=== PATIENT | female | born 1955 | race Caucasian/White ===

== ENCOUNTER → 2017-12-29 | Outpatient (CLI) | payer MEDICAID | LOC: FIMAGING 07:17 | PROVIDERS: ATTEND Family Medicine | DX: N95.0 Postmenopausal bleeding (principal) ==

== ENCOUNTER 2018-03-08 05:35 | Day surgery (SDC) | payer MEDICAID ==
--- NOTE | 2018-03-03 13:59 | GHP ---
[f rep st] PREOP HISTORY AND PHYSICAL DATE OF OPERATION: 03/08/2018. PREOPERATIVE DIAGNOSIS: Postmenopausal bleeding. SURGERY TO BE PERFORMED: Hysteroscopy, dilation, curettage, polypectomy with morcellator. HISTORY OF PRESENT ILLNESS: Leisa is a 62-year-old 2, para 2-0-0-2, who presented for an e valuation for postmenopausal bleeding. She had postmenopausal bleeding for several days beginning in December of this year, and had minimal episodes of vaginal spotting since. She denies any ovulatory sy mptoms, any breast tenderness, cramping pain. She had an ultrasound evaluation that demonstrated a t hickened endometrium that was 14 mm on ultrasound, and she was sent to [facility] for evalu ation and endometrial biopsy. Patient tolerated the endometrial biopsy well, but the pathology revea led fragmented proliferative endometrium, insufficient intact endometrial for assessment, but there w as no cytologic evidence of a malignancy. Patient continues to have episodes of postmenopausal bleed ing since the biopsy in January, and we decided to have a definitive evaluation surgically with a hystero scopy D and C for diagnosis and possible treatment for her endometrial bleeding. Significant medical risk factors are none. She has no chronic medical problems. She is obese at 221 pounds. PAST SURGICAL HISTORY: Only significant for wisdom teeth extraction in 1991. PAST OBSTETRICAL HISTORY: She had 2 full-term vaginal deliveries without complications in 1983 and , and no other pregnancies. PAST GYNECOLOGICAL HISTORY: She had normal menstrual triad with menarche at age 15. She had cycles monthly until she went through menopause at approximately age 52. She denies any abnormal Pap smears . Her last Pap was in December of this year. Denies any sexually transmitted diseases. This is her 1s t episode of postmenopausal bleeding since menopause 10 years ago. She is in a homosexual [facility] ip with a woman for the last 15 years and they are . No other risk factors. ALLERGIES: No known drug allergies. CURRENT MEDICATIONS: Include vitamin D, magnesium, calcium, and vitamin B complex. No other prescri bed medications. SOCIAL HISTORY: She is to a female. 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 No marijuana use or any other substances. She does not engage in any exercise other than work. FAMILY HISTORY: Significant with sister with endometriosis. Paternal grandmother had bone cancer. Maternal grandmother and mom have diabetes, and father has hypertension. Her mother at age 77 f rom complications from an MVA. Her father is still living at 83 and her siblings are healthy. REVIEW OF SYSTEMS: Negative except for pertinent positives as above in HPI. OBJECTIVE: VITAL SIGNS: Blood pressure 124/60, weight is 221 pounds. GENERAL: She is a well-devel oped, white female in no acute distress. LUNGS: Clear to auscultation bilaterally. HEART: Regular rate and rhythm. No murmur. ABDOMEN: Soft, nontender, nondistended. Normal bowel sounds. PELVIC: Exam normal atrophic external genitalia, normal parous cervix. Uterus is small, anteverted, antefl exed, mobile, nontender. No masses. No adnexal masses and nontender. ASSESSMENT AND PLAN: 62-year-old 2, para 2-0-0-2, with episodes of postmenopausal bleeding, thickened endometrial stripe on ultrasound with an insufficient endometrial biopsy to rule out hyperp lasia or malignancy. She will have a hysteroscopy, D and C, and possible polypectomy with morcellato r to remove all of the tissue for diagnosis and treatment. She understood the risks and benefits of this procedure today. The risks including bleeding, infection, damage to the uterus including possib le risk of perforation, damage to other organs if perforation was to occur, and electrolyte imbalance s, as well as needing additional procedures for further diagnosis and treatment. She understood thes e risks and benefits and agreed to proceed. /[id number]/MODL
[2018-03-08] MEDS ORDERED: LR 1,000 ML IV ONE (06:11)
[2018-03-08] MEDS ORDERED: LIDOCAINE 1% 2 ML INJ ID PRN (06:11)
[2018-03-08] MEDS ORDERED: MIDAZOLAM 2 MG/2 ML VIAL IVP ONE (06:58)
--- NOTE | 2018-03-08 06:58 | PDANEPAE ---
ANE History of Present Illness hysteroscopy ANE Past Medical History - Cardiovascular History Hx Hypertension: No Hx Arrhythmias: No Hx Chest Pain: No Hx Coronary Artery / Peripheral Vascular Disease: No Hx CHF / Valvular Disease: No Hx Palpitations: No - Pulmonary History Hx COPD: No Hx Asthma/Reactive Airway Disease: No Hx Recent Upper Respiratory Infection: No Hx Oxygen in Use at Home: No Hx Sleep Apnea: No Sleep Apnea Screening Result - Last Documented: Positive - Neurologic History Hx Cerebrovascular Accident: No Hx Seizures: No Hx Dementia: No - Endocrine History Hx Diabetes: No Hypothyroid: No Hyperthyroid: No - Renal History Hx Renal Disorders: No - Liver History Hx Hepatic Disorders: No - Neurological & Psychiatric Hx Hx Neurological and Psychiatric Disorders: No - Cancer History Hx Cancer: No - Congenital Disorder History Hx Congenital Disorders: No - GI History Hx Gastrointestinal Disorders: No - Other Health History Other Health History: post menapausal issues - Chronic Pain History Chronic Pain: No - Surgical History Prior Surgeries: none ANE Review of Systems Review of Systems: - Exercise capacity Exercise capacity: >=4 METS METS (RN): 5 METS ANE Patient History - Allergies Allergies/Adverse Reactions: No Known Allergies Allergy (Verified 02/28/18 11:44) - Home Medications Home Medications: NK [No Known Home Meds] 02/28/18 [Last Taken Unknown] - NPO status NPO Status: no food or drink >8 hours NPO Since - Liquids (Date): 03/07/18 NPO Since - Liquids (Time): 20:00 NPO Since - Solids (Date): 03/07/18 NPO Since - Solids (Time): 19:00 - Anes Hx Hx Anesthesia Complications (with details): no prior operations - Smoking Hx Smoking Status: Former smoker - Family Anes Hx Family Hx Anesthesia Complications: none known ANE Labs/Vital Signs - Vital Signs Blood Pressure: 137/87 Heart Rate: 59 Respiratory Rate: 16 O2 Sat (%): 95 Height: 165.1 cm Weight: 99.79 kg ANE Physical Exam - Airway Mallampati Score: Class 2 Mouth exam: normal dental/mouth exam - Pulmonary Pulmonary: no respiratory distress - Cardiovascular Cardiovascular: regular rate and rhythym - ASA Status ASA Status: I ANE Anesthesia Plan Anesthesia Plan: GA w LMA
[2018-03-08] MEDS ORDERED: PROPOFOL 200 MG/20 ML VIAL ONE (07:05)
[2018-03-08] MEDS ORDERED: fentaNYL 100 MCG/2 ML INJ ONE ×2 (07:05→09:53)
[2018-03-08] MEDS ORDERED: KETOROLAC 30 MG/1 ML SDV ONE ×2 (07:07→09:51)
[2018-03-08] MEDS ORDERED: DEXAMETHASONE 4 MG/ML VIAL ONE ×2 (07:07→09:29)
[2018-03-08] MEDS ORDERED: ONDANSETRON 4 MG/2 ML VIAL ONE ×2 (07:07→09:51)
[2018-03-08] MEDS ORDERED: LIDOCAINE 2% 5 ML SDV ONE ×2 (07:07→09:29)
[2018-03-08] MEDS ORDERED: SILVER NITRATE APPLICATOR 1 APPL TP ONE (08:03)
--- NOTE | 2018-03-08 08:52 | PDHPUP ---
History & Physical Update H&P update statement: This history and physical update is based on an assessment of the patient which was completed after admission or registration (within 24 hours), but prior to the surgery/procedure. H&P update: H&P reviewed & patient examined, no change in patient's condition since H&P completed
[2018-03-08] MEDS ORDERED: PROPOFOL/EMULSION 500 MG/50 ML BOTTLE IV ONE (09:29)
[2018-03-08] MEDS ORDERED: HYDROCODONE/APAP 5/325 TAB PO PRN ×2 (10:13→10:29)
[2018-03-08] MEDS ORDERED: fentaNYL 100 MCG/2 ML INJ IVP PRN (10:13)
[2018-03-08] MEDS ORDERED: PROMETHAZINE HCL 25 MG/ML INJ IVP PRN (10:13)
[2018-03-08] MEDS ORDERED: ALBUTEROL 3 ML DEYVIAL IH PRN (10:13)
[2018-03-08] MEDS ORDERED: NALOXONE HCL 0.4 MG/ML INJ IVP PRN (10:13)
[2018-03-08] MEDS ORDERED: ACETAMINOPHEN 500 MG TAB PO PRN (10:13)
[2018-03-08] MEDS ORDERED: LR 500 ML IV PRN (10:13)
--- NOTE | 2018-03-08 10:13 | POSTANESTH ---
Post Anesthetic Evaluation Cardiovascular Status: Normal, Stable Respiratory Status: Normal, Stable Level of Consciousness/Mental Status: Can Participate in Eval, Mildly Sleepy, Arousable Pain Control: Adequate, Prn Tx Ordered Nausea/Vomiting Control: Adequate, Prn Tx Ordered Complications Possibly Related to Anesthesia: None Noted
[2018-03-08] MEDS ORDERED: IBUPROFEN 600 MG TAB PO PRN (10:29)
--- NOTE | 2018-03-08 10:29 | POSTOPPROG ---
Post Op Note Date of Operation: 03/08/18 Surgeon: Anyi Martinez Anesthesiologist: Dr. Nathalia Mesa Anesthesia: GET(General Endotracheal), LMA Pre-op Diagnosis: post menopausal bleeding and endometrial polyp Post-op Diagnosis: same Procedure: Hysteroscopy Dilation and currettage, polypectomy with morcellator Findings: multiple endometrial polyps Inf/Abcess present in the surg proc area at time of surgery?: No Depth: Organ Space EBL: Minimal Total fluids administered: 1200 Complications: none Specimen(s): endometrial polyps, endometrial currettings
--- NOTE | 2018-03-08 11:00 | GOP ---
[f rep st] OPERATIVE REPORT DATE OF OPERATION: 03/08/2018 SURGEON: Anyi Martinez MD ANESTHESIA: General anesthesia with an LMA. ANESTHESIOLOGIST: Nathalia Vogt MD. PREOPERATIVE DIAGNOSIS: Postmenopausal bleeding and endometrial polyps. POSTOPERATIVE DIAGNOSIS: Postmenopausal bleeding and endometrial polyps. PROCEDURE PERFORMED: Hysteroscopy, dilation and curettage, polypectomy with morcellator. FINDINGS: SPECIMENS: Pathologic specimen will be endometrial polyps and endometrial curettings. ESTIMATED BLOOD LOSS: Less than 50 cc. INDICATIONS: The patient is a 62-year-old, 2, para 2-0-0-2, who presented for an evaluation for postmenopausal bleeding. She has been postmenopausal since approximately age 52. She began blee ding in December with 1 episode of heavy bleeding and then spotting ever since. She denies any ovulator y symptoms, breast symptoms, cramping, or pain. Ultrasound evaluation demonstrated a thickened endom etrium that was 14 mm on ultrasound. She had underwent an endometrial biopsy that revealed prolifera tive endometrium, but insufficient intact endometrial for assessment. There was no cytologic evidenc e of malignancy. Because of the insufficient diagnosis on endometrial biopsy, continuing bleeding as well as thickened endometrium, the decision was made to proceed with hysteroscopy, D and C, and poly pectomy with morcellator. She was consented for the procedure. She understood the risks and benefit s. The risks including bleeding, infection, damage to internal organs including the uterus, possible risk of perforation, damage to other organs if perforation was to occur, need for additional procedu res. She understood these risks and benefits and agreed to proceed. DESCRIPTION OF PROCEDURE: The patient was taken to the operating room. She was placed under general anesthesia without difficulty. She was prepped and draped in the dorsal lithotomy position and her bladder had previously been drained. After WHO time-out was performed an open-sided speculum was jessie mayank in the vagina, and a single-tooth tenaculum was used to grasp the anterior lip of the cervix. Th e uterus sounded to approximately 7 cm. The cervix was then dilated with Cannon dilators to a #6-1/2. The TruClear hysteroscope was then gently advanced from the cervix to fundus and inspection of the cavity was made. There were multiple endometrial polyps visualized beginning at the level of cervica l os and proceeding into the endometrial cavity and a presumed submucosal fibroid was seen on the ant erior wall of the uterus. The morcellator was then introduced through the operative channel. A wind ow lock was performed and under direct visualization, morcellation was performed of all of the polyps and the submucosal fibroid. The bleeding was minimal and inspection of the cavity revealed a clear endometrium at the end of the case. The scope was removed. A curettage was then performed in a clockwise fashion until a gritty t exture was palpated throughout the entire endometrium and that specimen will be sent with the polypec irina specimen from the morcellator. The single-tooth tenaculum was used and silver nitrate was used to cauterize the tenaculum spots and speculum was removed. The patient tolerated the procedure well. Sponge, lap, needle, and instrument counts were correct x2. Patient went to the recovery room in g ood condition. SURGEON: Anyi Martinez MD. FLUID REPLACEMENT: 1200 cc. URINE OUTPUT: Not measured. /[id number]/MODL
[2018-03-08 12:17] VITALS: BP 119/72
== END 2018-03-08 12:25 | disposition home or self-care (01) ==
LOC: MERGE 05:35 → FSGY 05:35 → EDSEX 07:15 → FSGY 12:25
PROVIDERS: ATTEND Obstetrics & Gynecology
DX: N95.0 Postmenopausal bleeding (principal); N84.0 Polyp of corpus uteri
CPT/HCPCS: 58558; C1782; J1100; J1885; J2250; J2405; J2704; J3010